=== PATIENT | female | born 1990 | race Caucasian/White ===

== ENCOUNTER 2021-12-06 17:03 | Emergency (ER) | payer OTHER ==
[~2021-12-06 17:03] MED LIST: AMOXICILLIN875 MG PO; ANUSOL HC SUPP1 SUPP PR; COLACE 100MG C100 MG PO; FEOSOL325 MG PO; IBUPROFEN600 MG PO; IBUPROFEN800 MG PO; MACROBID 100 M100 MG PO; ONDANSETRON ODT4 MG PO; ROBITUSSIN100 MG/51 PO; UNISOM25 MG PO; ZOFRAN ODT 4 MG4 MG SL
== END 2021-12-06 22:15 | disposition home or self-care (01) ==
LOC: ER1 17:03
DX: O99.891 Other specified diseases and conditions complicating pregnancy (principal); M54.2 Cervicalgia; M54.9 Dorsalgia, unspecified; Z3A.25 25 weeks gestation of pregnancy; V49.40XA Driver injured in collision with unspecified motor vehicles in traffic accident, initial encounter; Y92.410 Unspecified street and highway as the place of occurrence of the external cause
CPT/HCPCS: 72040; 72070; 72100; 99284

== ENCOUNTER 2022-03-04 15:01 | Outpatient (CLI) | payer BC | END 2022-03-04 17:22 | disposition home or self-care (01) | LOC: GENOP 15:01 | DX: O47.03 False labor before 37 completed weeks of gestation, third trimester (principal); Z3A.38 38 weeks gestation of pregnancy | CPT/HCPCS: 81001; G0463 ==

== ENCOUNTER 2022-03-06 16:43 | Inpatient (IN) | payer BC ==
[~2022-03-06] VITALS: Ht 160 cm; Wt 121.1 kg
[2022-03-06 17:18] LABS: HEMOGLOBIN 11.1 gm/dl (12.3-15.3); RED BLOOD COUNT 3.99 M/UL (4.00-5.10); WHITE BLOOD COUNT 9.6 K/UL (4.5-11.0)
[2022-03-06] MEDS ORDERED: PROZAC10 MG PO (18:55)
[2022-03-06] MEDS ORDERED: FLUOXETINE HCL60 MG PO (18:55)
[2022-03-08 06:25] LABS: HEMOGLOBIN 10.9 gm/dl (12.3-15.3)
== END 2022-03-08 19:12 | disposition home or self-care (01) | DRG 807 ==
LOC: GENOP 16:43 → OB 17:04
PROVIDERS: ADMIT Obstetrics & Gynecology
PROC: 4A1HXCZ Monitoring of Products of Conception, Cardiac Rate, External Approach (ICD-10-PCS; 2022-03-06)
PROC: 10E0XZZ Delivery of Products of Conception, External Approach (ICD-10-PCS; principal; 2022-03-08)
PROC: 10907ZC Drainage of Amniotic Fluid, Therapeutic from Products of Conception, Via Natural or Artificial Opening (ICD-10-PCS; 2022-03-08)
DX: O99.214 Obesity complicating childbirth (principal); Z37.0 Single live birth; E66.9 Obesity, unspecified; Z3A.38 38 weeks gestation of pregnancy; Z20.822 Contact with and (suspected) exposure to COVID-19; Z28.310 Unvaccinated for COVID-19; Z86.73 Personal history of transient ischemic attack (TIA), and cerebral infarction without residual deficits; Z83.2 Family history of diseases of the blood and blood-forming organs and certain disorders involving the immune mechanism; Z80.9 Family history of malignant neoplasm, unspecified; Z82.49 Family history of ischemic heart disease and other diseases of the circulatory system; Z82.0 Family history of epilepsy and other diseases of the nervous system; Z83.3 Family history of diabetes mellitus; Z83.49 Family history of other endocrine, nutritional and metabolic diseases
CPT/HCPCS: 36415; 81001; 82800; 85014; 85018; 85025; J2590